=== PATIENT | male | born 1965 | race Caucasian/White ===

== ENCOUNTER 2019-07-16 04:27 | Emergency (ER) | payer OTHER ==
[2019-07-16 04:43] VITALS: TEMP 96.8
[2019-07-16] MEDS ORDERED: IPRATROPIUM/ALBUTEROL 3 ML VIAL NEB ONE (04:44)
[2019-07-16] MEDS ORDERED: ALBUTEROL SULFATE 2.5 MG/3 ML VIAL NEB ONE ×2 (04:50→04:51)
--- NOTE | 2019-07-16 04:59 | ED.PDOC ---
History of Present Illness - General Chief Complaint: Respiratory Problem Stated Complaint: wants breathing treatment Time Seen by Provider: 07/16/19 04:56 Source: patient, RN notes reviewed, Vital Signs reviewed - History of Present Illness Initial Comments: Pt is a 53y/o WM out of meds x 2 days. Here with c/o dyspnea. Pt denies f/c/n/v/d/cp/mejia/blurry vision. +SOB. Timing/Duration: 24 hours Severity: moderate Activities at Onset: none Possible Cause: other - Pt out of meds. hx of copd Improving Factors: medication Worsening Factors: other - smoking and exertion Associated Symptoms: cough, wheezing Respiratory Risk Factors: other - hx of copd Allergies/Adverse Reactions: Allergies NO KNOWN ALLERGY Allergy (Verified 07/16/19 04:42) Home Medications: Ambulatory Orders predniSONE 60 mg PO DAILY #15 tab 07/16/19 predniSONE 60 mg PO DAILY #5 tab 07/16/19 Review of Systems - Review of Systems Constitutional: States: no symptoms reported EENTM: States: no symptoms reported Respiratory: States: see HPI, cough, short of breath, wheezing Cardiology: States: no symptoms reported Gastrointestinal/Abdominal: States: no symptoms reported Genitourinary: States: no symptoms reported Musculoskeletal: States: no symptoms reported Skin: States: no symptoms reported Neurological: States: no symptoms reported All other Systems: Reviewed and Negative Past Medical History (General) - Patient Medical History Hx of COPD: Yes Hx Hypertension: Yes Surgical History: appendectomy - Vaccination History Hx Tetanus, Diphtheria Vaccination: Yes Hx Influenza Vaccination: No - Triage Comment ED Triage Comment: States out of inhaler and albuteral nebs and just wants a breathing treatment. Also beenout of blood pressure meds Family Medical History - Family History Father Family History: Unknown Physical Exam - Physical Exam General Appearance: Alert, Anxious, Well Developed, Well Groomed, Well Nourished Eyes, Ears, Nose, Throat Exam: PERRL/EOMI, normal ENT inspection, pharynx normal Neck: non-tender, full range of motion, supple, normal inspection Respiratory: chest non-tender, respiratory distress, decreased breath sounds, wheezing, expiration, inspiration Cardiovascular/Chest: normal peripheral pulses, regular rate, rhythm, no edema, no gallop, no murmur Peripheral Pulses: radial,right: 2+ Gastrointestinal/Abdominal: normal bowel sounds, non tender, soft Extremity: normal range of motion, normal inspection 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 Departure - Departure Clinical Impression: COPD (chronic obstructive pulmonary disease) Qualifiers: COPD type: COPD with acute exacerbation Qualified Code(s): J44.1 - Chronic obstructive pulmonary disease with (acute) exacerbation Time of Disposition: 05:01 Disposition: Discharge to Home or Self Care Condition: Good Departure Forms: ED Discharge - Pt. Copy, Patient Portal Self Enrollment Instructions: Exacerbation of COPD (DC) Prescriptions: predniSONE 60 mg PO DAILY #5 tab predniSONE 60 mg PO DAILY #15 tab Home Medications: Ambulatory Orders predniSONE 60 mg PO DAILY #15 tab 07/16/19 predniSONE 60 mg PO DAILY #5 tab 07/16/19
[2019-07-16] MEDS ORDERED: predniSONE 20 MG TAB PO ONE (05:07)
[2019-07-16 05:20] VITALS: BP 182/101; O2SAT 98
== END 2019-07-16 05:19 | disposition home or self-care (01) ==
LOC: ER 04:27
DX: J44.1 Chronic obstructive pulmonary disease with (acute) exacerbation (principal); I10 Essential (primary) hypertension; Z79.899 Other long term (current) drug therapy
CPT/HCPCS: 94640; J7512; J7611; J7620